=== PATIENT | male | born 1955 | race Caucasian/White ===

== ENCOUNTER → 2020-10-29 | Outpatient (CLI) | payer MEDICARE ==
[~2020-10-29] MED LIST: CALC600C3 PO; ECOT81TA5 PO; FLOM0.4C39 PO; FLUTISP; KP F1200 PO; METO25TA4 PO; PANT40TA29 PO; ROSU10TA6 PO; VITMTA PO
--- NOTE | 2020-10-29 09:10 | REPPI ---
INDICATION: N20.1 LEFT URETHRAL CALCULUS COMPARISON: None. TECHNIQUE: Supine view of the abdomen and pelvis. FINDINGS: Evaluation of the urinary tract system is limited due to overlying bowel gas pattern. Small punctate intrarenal calculi cannot be excluded. No obvious ureteral or bladder calcifications are identified. The bowel gas pattern is nonspecific and mild fecal stasis is suggested. No organomegaly. Skeletal structures demonstrate age-related changes. Surgical clips at the right groin noted. IMPRESSION: 1. Limited evaluation for urinary tract calcifications although small punctate nephroliths cannot be excluded. <Electronically signed by Dontae Lamar > 10/29/20 [id number]
== END ==
LOC: M PLAIMG 08:41
PROVIDERS: ATTEND Urology
DX: N20.1 Calculus of ureter (principal)
CPT/HCPCS: 74018; G0463

== ENCOUNTER 2020-11-29 06:21 | Day surgery (SDC) | payer MEDICARE ==
[~2020-11-29] VITALS: Ht 167.6 cm; Wt 87.1 kg
[~2020-11-29 06:21] MED LIST changes: -FLOM0.4C39 PO; +LIDOCAINE 1% MDV 20ML VIAL SQ PRN; +LR 1,000 ML IV ONE; +ceFAZolin SOD 2 GM in IV 1 EA IV ONE
[2020-11-29] MEDS ORDERED: propofoL 200 MG/20 ML VIAL As Ordered ONE (08:08)
[2020-11-29] MEDS ORDERED: MIDAZOLAM INJ 2MG/2ML VIAL (J2250 PER 1MG) As Ordered ONE (08:08)
[2020-11-29] MEDS ORDERED: LIDOCAINE 2% 100MG/5ML SDV (FOR ANES.) As Ordered ONE (08:08)
[2020-11-29] MEDS ORDERED: FLOM0.4C39 PO (08:52)
--- NOTE | 2020-11-29 09:24 | RO ---
OPERATIVE NOTE DATE OF OPERATION: 11/29/2020 PREOPERATIVE DIAGNOSIS: Left ureteral stone. POSTOPERATIVE DIAGNOSIS: Left ureteral stone. PROCEDURE: Left extracorporal shock wave lithotripsy. SURGEON: Calixto Chávez MD. MEAT CLERK: None. ANESTHESIA: MAC. OPERATIVE INDICATIONS: This 65-year-old male was found to have an obstructing 7 mm proximal left ureteral stone on previous imaging. He is brought to the operating room today for treatment. DESCRIPTION OF PROCEDURE: The patient was brought to the operating room and MAC anesthesia was administered. Prophylactic antibiotics were infused. He was then placed in the supine position, prepped and draped for a left-sided extracorporal shock wave lithotripsy. Fluoroscopy was utilized to monitor stone position and fragmentation throughout the procedure. At this point, we were able to identify the left-sided ureteral stone, which now appeared to be in the distal ureter. Once we identified the location of the stone, shock wave was then delivered to the stone ungated. There were no arrhythmias. At this point, shock wave was delivered. The stone did appear to fragment well. After 3000 shocks, the procedure was concluded. The patient was then awakened from anesthesia and transported to the recovery room in stable condition. ESTIMATED BLOOD LOSS: 0 mL. COMPLICATIONS: None. SPECIMENS: None. PLAN: The patient will follow-up in the urology clinic in a few weeks with imaging prior to assess for residual stone burden.
[2020-11-29 09:55] VITALS: BP 160/73
--- NOTE | 2020-11-30 09:10 | REP ---
INDICATION: KIDNEY STONE- KUB PRIOR TO SDC COMPARISON: 10/29/2020 TECHNIQUE: Supine view of the abdomen and pelvis. FINDINGS: No obvious urinary tract calcification identified by radiographic evaluation although examination is limited due to technique. Bowel gas pattern is nonspecific. Skeletal structures are intact. IMPRESSION: Limited evaluation for urinary tract calcifications. If necessary consider noncontrast CT of the abdomen and pelvis. <Electronically signed by Dontae Lamar > 11/30/20 [id number]
== END 2020-11-29 09:55 | disposition home or self-care (01) ==
LOC: M SDC 06:21
PROVIDERS: ATTEND Urology
DX: N20.1 Calculus of ureter (principal); I10 Essential (primary) hypertension; E78.5 Hyperlipidemia, unspecified; K21.9 Gastro-esophageal reflux disease without esophagitis; I34.9 Nonrheumatic mitral valve disorder, unspecified; G47.33 Obstructive sleep apnea (adult) (pediatric); Z79.899 Other long term (current) drug therapy
CPT/HCPCS: 50590; 74018; J0690; J2250

== ENCOUNTER → 2021-01-10 | Outpatient (REF) | payer MEDICARE ==
[~2021-01-10] MED LIST changes: +FLOM0.4C39 PO; -LIDOCAINE 1% MDV 20ML VIAL SQ PRN; -LR 1,000 ML IV ONE; -ceFAZolin SOD 2 GM in IV 1 EA IV ONE
[2021-01-10 17:25] LABS: APPEARANCE, URINE CLEAR (CLEAR); BACTERIA, URINE AUTO NEGATIVE (NEGATIVE); BILIRUBIN, URINE AUTO NEGATIVE (NEGATIVE); BLOOD, URINE BLOOD 1+ (NEGATIVE); COLOR, URINE STRAW (YELLOW); GLUCOSE, URINE (UA) AUTO NEGATIVE (NEGATIVE); KETONE, URINE AUTO NEGATIVE (NEGATIVE); LEUKOCYTE ESTERASE, URINE AUTO NEGATIVE (NEGATIVE); NITRITE, URINE AUTO NEGATIVE (NEGATIVE); PROTEIN, URINE AUTO NEGATIVE (NEGATIVE); RBC, URINE AUTO 1 /HPF (0-3); SPECIFIC GRAVITY URINE AUTO 1.004 (1.002-1.035); SQUAMOUS EPITHELIAL CELL UR AU 0 /HPF (0-6); UROBILINOGEN, URINE AUTO 0.2 mg/dL (0.0-2.0); WBC, URINE AUTO 1 /HPF (0-3)
== END ==
LOC: M SMT 16:53
PROVIDERS: ATTEND Nurse Practitioner Women's Health
DX: N20.1 Calculus of ureter (principal)

== ENCOUNTER 2021-04-04 08:10 | Day surgery (SDC) | payer MEDICARE ==
[~2021-04-04] VITALS: Ht 167.6 cm; Wt 86.2 kg
[~2021-04-04 08:10] MED LIST changes: +LIDOCAINE 1% MDV 20ML VIAL SQ PRN; +LR 1,000 ML IV ONE; +ceFAZolin SOD 2 GM in IV 1 EA IV ONE
[2021-04-04] MEDS ORDERED: LIDOCAINE 2% 100MG/5ML SDV (FOR ANES.) As Ordered ONE (10:18)
[2021-04-04] MEDS ORDERED: ONDANSETRON 4MG/2ML VIAL As Ordered ONE (10:18)
[2021-04-04] MEDS ORDERED: ACETAMINOPHEN 1000MG 100ML IV BTL (OFIRMEV) (J0131 PER 10MG) As Ordered ONE (10:18)
[2021-04-04] MEDS ORDERED: propofoL 200 MG/20 ML VIAL As Ordered ONE (10:18)
[2021-04-04] MEDS ORDERED: dexameTHASONE 4 MG/ML 1ML VIAL (J1100 PER 1MG) As Ordered ONE (10:18)
[2021-04-04] MEDS ORDERED: MIDAZOLAM INJ 2MG/2ML VIAL (J2250 PER 1MG) As Ordered ONE (10:19)
[2021-04-04] MEDS ORDERED: fentaNYL 100 MCG/2 ML INJECTION (J3010) As Ordered ONE (10:19)
[2021-04-04] MEDS ORDERED: LIDOCAINE 5% OINT 30GM TUBE As Ordered ONE (11:20)
[2021-04-04] MEDS ORDERED: ePHEDrine SULFATE 25 MG/5 ML(5MG/ML) SYRINGE As Ordered ONE (11:39)
--- NOTE | 2021-04-04 12:21 | REP ---
INDICATION: BILATERAL STENT PLACEMENT. COMPARISON: None. TECHNIQUE: Three AP views abdomen and pelvis using a C-arm. FINDINGS: Contrast partially opacifies the bilateral pelvocaliceal systems. Bilateral ureteral stents are placed. The proximal end of each stent is coiled in the respective renal pelvis and the distal end of each stent is coiled in the urinary bladder. IMPRESSION: 19 seconds fluoroscopy time utilized. <Electronically signed by Sánchez Guido > 04/04/21 [id number]
[2021-04-04] MEDS ORDERED: CONRAY-60 60% 50ML VIAL (Q9961) As Ordered ONE (12:37)
[2021-04-04] MEDS ORDERED: fentaNYL 100 MCG/2 ML INJECTION (J3010) IV PRN (12:40)
[2021-04-04] MEDS ORDERED: METOCLOPRAMIDE INJ 10MG/2ML VIAL (J2765 PER 1) IV PRN (12:40)
[2021-04-04] MEDS ORDERED: PERCOCET 5MG/325MG TAB PO PRN ×2 (12:40)
[2021-04-04] MEDS ORDERED: LR 1,000 ML IV SCH (12:40)
[2021-04-04] MEDS ORDERED: ONDANSETRON 4MG/2ML VIAL IV PRN (12:40)
[2021-04-04] MEDS ORDERED: oxyBUTYnin 5 MG TAB PO PRN (13:30)
--- NOTE | 2021-04-04 13:45 | RO ---
OPERATIVE NOTE DATE OF OPERATION: 04/04/2021 PREOPERATIVE DIAGNOSIS: Bilateral kidney and ureteral stones. POSTOPERATIVE DIAGNOSIS: Bilateral kidney and ureteral stones. PROCEDURE: Cystoscopy, bilateral ureteroscopy with basket extraction of stones, bilateral retrograde pyelograms with intraoperative interpretation of images, bilateral ureteral stent placement. SURGEON: DELMA DRISCOLL MD LAUNDRY HELPER: None. ANESTHESIA: General. OPERATIVE INDICATIONS: This is a 66-year-old male with a history of kidney stones and on recent CT scan was found to have obstructing distal left ureteral stones as well as bilateral non-obstructing kidney stones. He was brought to the Operating Room today for treatment. DESCRIPTION OF PROCEDURE: The patient was brought to the Operating Room and general anesthesia was induced. Prophylactic antibiotics were infused. He was placed in the dorsal lithotomy position, prepped and draped in the usual sterile fashion. A cystoscope was inserted in the urethral meatus and advanced to the bladder. A guidewire was advanced up the left collecting system. I then went up the left collecting system with a short semi rigid ureteroscope and within the distal ureter, two stones were seen impacted. The stones measured around 4 mm in size. The stones were removed using a basket. I examined the more proximal ureter, no additional stones were seen. I then removed the short semi-rigid ureteroscope and advanced the ureteral access sheath up the left collecting system. I went up the access sheath with the flexible ureteroscope and then examined the left kidney thoroughly. Within one of the calyces an approximately 4 to 5 mm stone was seen. The stone was removed with a basket. Only very tiny stone debris remained within the left kidney. A retrograde pyelogram was then performed and notable for mild to moderate left-sided hydronephrosis with no extravasation. I then withdrew the ureteroscope along with the access sheath and no stones were seen inside the ureter. The guidewire was then utilized to advance the 6 Jamaican 22-32 cm JJ ureteral stent up the left collecting system. The wire was removed and there was adequate curls of the stent and left in the pelvis and in the bladder. I then advanced the guidewire up the right collecting system. I advanced the ureteral access sheath up the right collecting system. I went up the access sheath with the flexible ureteroscope and examined the right kidney thoroughly. Within the upper pole calyx, an approximately 5 mm stone was seen. The stone was removed using a basket. No additional stones were seen. I then shot a retrograde pyelogram and it was notable for mild right hydronephrosis but no extravasation. I then withdrew the ureteroscope along with the access sheath and no additional stones were seen inside the right collecting system. I then utilized the guidewire to advance the 6 Jamaican 22-32 cm JJ ureteral stent up the right collecting system. The wire was removed and there was adequate curls of the stent and right in the pelvis and in the bladder. I then emptied the bladder of all fluids and this brought conclusion of the procedure. The patient was taken out of the dorsal lithotomy position, awakened from anesthesia and transferred to the recovery ESTIMATED BLOOD LOSS: 6 ml. COMPLICATIONS: None. SPECIMENS: Kidney stones. PLAN: The patient will follow-up in the Urology Clinic in a few weeks for stent removal. NAOMIE
[2021-04-04] MEDS ORDERED: OXYB5TAB10 PO (14:11)
[2021-04-04 14:15] VITALS: BP 156/74
[2021-04-10 17:07] LABS: CA Oxalate Dihy 70 % (.); Ca Ox Monohydrate 30 % (.); Size 6x6 mm (.)
== END 2021-04-04 14:23 | disposition home or self-care (01) ==
LOC: M SDC 08:10
PROVIDERS: ATTEND Urology
DX: N13.2 Hydronephrosis with renal and ureteral calculous obstruction (principal); E66.09 Other obesity due to excess calories; E78.2 Mixed hyperlipidemia; G47.33 Obstructive sleep apnea (adult) (pediatric); G56.01 Carpal tunnel syndrome, right upper limb; I10 Essential (primary) hypertension; I48.0 Paroxysmal atrial fibrillation; J30.9 Allergic rhinitis, unspecified; K21.9 Gastro-esophageal reflux disease without esophagitis; R01.1 Cardiac murmur, unspecified; Z98.890 Other specified postprocedural states; Z79.82 Long term (current) use of aspirin; Z79.899 Other long term (current) drug therapy
CPT/HCPCS: 52332; 52352; 74420; 82365; 88300; C1769; C1894; C2617; J0131; J0690; J1100; J2250; J2405; J3010; Q9961